=== PATIENT | female | born 1970 | race Caucasian/White ===

== ENCOUNTER → 2019-08-19 11:54 | Outpatient (CLI) | payer OTHER, SELFPAY ==
--- NOTE | 2019-08-19 12:01 | US_ITS ---
PROCEDURE: US TRANSVAGINAL CLINICAL INDICATION: DUB Dysfunctional uterine bleeding, heavy bleeding COMPARISON: No exams were available for comparison FINDINGS: UTERUS: 9.5 x 5.3 x 6.3 cm. Combined endometrial thickness is 6 mm. Nabothian cysts are noted. No obvious uterine fibroid. Bilateral Essure devices are in place The left ovary is 3.7 x 1.5 cm poorly demonstrated. The right ovary is 2 point 8 x 3 cm also not well delineated. Trace cul-de-sac fluid. IMPRESSION: Bulky uterus but without distinct fibroid. Bilateral Essure device is present. The ovaries are grossly unremarkable but not well demonstrated with a small amount of fluid in the cul-de-sac Dictated by: Elan Snow MD 08/19/2019 18:15 Electronically signed by Elan Snow MD in [place] 08/19/2019 18:15
[2019-08-19 13:13] LABS: Basophils # 0.1 K/mm3 (0-0.2); Basophils % 0.6 % (0.1-2.0); Eosinophils # 0.4 K/mm3 (0.0-0.4); Eosinophils % 4.1 % (0.1-12.0); Hematocrit 35.3 % (37.0-47.0); Hemoglobin 11.6 g/dL (12.2-16.2); Lymphocytes # 2.2 K/mm3 (0.7-4.5); Lymphocytes % 22.1 % (10-50); Mean Corpuscular HGB Conc 32.9 g/dL (31.8-35.4); Mean Corpuscular Hemoglobin 29.4 pg (27.0-31.2); Mean Corpuscular Volume 89.3 fl (81-99); Mean Platelet Volume 7.3 fl (7.4-10.4); Monocytes # 0.3 K/mm3 (0.1-1.0); Monocytes % 3.3 % (1.7-9.3); Neutrophils % 69.9 % (37.0-80.0); Platelet Count 502 K/mm3 (142-424); Red Blood Count 3.96 M/mm3 (4.20-5.40); White Blood Count 10.1 K/mm3 (4.8-10.8)
[2019-08-19 16:10] LABS: Thyroid Stimulating Hormone 1.85 uIU/ml (0.358-3.740)
== END ==
PROVIDERS: Visit Provider Obstetrics & Gynecology
DX: N93.8 Other specified abnormal uterine and vaginal bleeding (principal)
CPT/HCPCS: 36415; 76830; 84443; 85025

== ENCOUNTER → 2019-08-19 12:54 | Outpatient (CLI) | payer OTHER, SELFPAY | PROVIDERS: Visit Provider Obstetrics & Gynecology | DX: N93.8 Other specified abnormal uterine and vaginal bleeding (principal) | CPT/HCPCS: 36415; 84443; 85025 ==

== ENCOUNTER → 2020-07-19 13:54 | Outpatient (CLI) | payer OTHER, SELFPAY ==
--- NOTE | 2020-07-19 13:55 | CA_ITS ---
APPROVED REPORT Left Lower Extremity Venous Study for DVT. Spinner Hand: CT Indications Lower Extremity Pain: Lower Extremity Edema: Left swelling Vein Imaging CFV (L): compressive, spontaneous, phasic, augmentation SFJ (L): compressive, spontaneous, phasic, augmentation FEM (L): compressive, spontaneous, phasic, augmentation POP (L): compressive, spontaneous, phasic, augmentation DFV (L): compressive, spontaneous, phasic, augmentation PTV (L): compressive, spontaneous, phasic, augmentation GSV (L): compressive, spontaneous, phasic, augmentation SSV (L): compressive, spontaneous, phasic, augmentation Peroneals (L):compressive, spontaneous, phasic, augmentation GAS (L): compressive, spontaneous, phasic, augmentation Findings LLE negative for DVT/SVT vessels fully compressible. No reflux noted. Non-vascularized ruptured cystic structure visualized in the left popliteal fossa measuring approximately 5.5 x 1.8 cm or greater. Unable to measure accurately, due to size. Conclusion LLE negative for DVT/SVT vessels fully compressible. No reflux noted. 6x2cm complex bakers cyst Critical Notification Critical Value: No Physician Notified Date: 07/19/2020 Time: 15:00 Physician Name: Kris Martins Report Read Back Electronically signed by : Elan Snow MD 07/20/2020 08:59:26
== END ==
LOC: RT 13:55
PROVIDERS: Visit Provider Nurse Practitioner Family
DX: R60.9 Edema, unspecified (principal); M79.662 Pain in left lower leg
CPT/HCPCS: 93971